=== PATIENT | female | born 1955 | race Caucasian/White ===

== ENCOUNTER → 2016-12-16 | Day surgery (SDC) | payer OTHER ==
[~2016-12-16] VITALS: Ht 154.9 cm; Wt 54.0 kg
[~2016-12-16] MED LIST: AMILORIDE HCL5 M1 PO; CIPRO250 M1 PO
--- NOTE | 2016-12-16 08:21 | Operative Report ---
Operative/Inv Procedure Report Surgery Date: 12/16/16 Name of Procedure: urethral sling, cystoscopy Pre-Operative Diagnosis: stress incontinence Post-Operative Diagnosis: same Estimated Blood Loss: less than 50ml Surgeon/Field Service Supervisor: ISAMAR COLBY MD Anesthesia: local monitored anesthesi Implants: vaginal mesh Complications: none Condition: stable Operative Indication: stress incontinence Operative/Procedure Note Note: This an operative dictation on patient Sigrid Scanlon. She was consented for urethral sling and cystoscopy. The risks benefits and alternatives were given and all questions were answered. Patient was taken to the operating room and placed on the operating table in supine position. Timeout was performed 2 g of IV Kefzol were given and TEVA was administered. She was placed in the dorsolithotomy position and prepped and draped in the standard sterile fashion. Valdovinos catheter was placed and was clamped and placed on the patient's abdomen. Figueroa retractor was placed for vaginal vault visualization. 1% lidocaine was infiltrated into the anterior vaginal wall. Incision was made and the vaginal flaps were created on the patient's left and right side. The Altis Sling kit was opened and the trochars provided were used to place the sling on the patient's left and right side into the obturator fascia. The sling was seen to be in a good tension-free manner once it was tightened with the Prolene loop suture. There was no mesh in the vaginal fornices. The area was copiously irrigated with bacitracin irrigation. The incision was closed with a 3-0 Vicryl running locking suture. Valdovinos catheter was removed and a cystoscopy was performed. Bladder was globally inspected. There were no masses, lesions or abnormalities and the ureteral orifices were in their normal anatomic position. There is no mesh in the bladder or the urethra. The bladder was emptied and the cystoscope was removed. The vaginal vault was then packed with 2 inch vaginal packing impregnated with bacitracin ointment. The sponge and needle count were correct and of the case. Findings: no mesh in bladder, urethra or vaginal fornices. Discharge Disposition: Same Day Admissions
== END ==
LOC: STS 01:38
DX: N39.3 Stress incontinence (female) (male) (principal); M81.0 Age-related osteoporosis without current pathological fracture
CPT/HCPCS: C1771; J0131; J0690; J2250

== ENCOUNTER 2016-12-31 07:31 | Emergency (ER) | payer OTHER ==
[~2016-12-31 07:31] MED LIST changes: -CIPRO250 M1 PO
--- NOTE | 2016-12-31 07:55 | ED GI/GU/ABDOMINAL COMPLAINT ---
History of Present Illness General Chief Complaint: Female Urogenital Problems Stated Complaint: HEMATURIA, 2 WEEKS POST OP FROM BLADDER SURG Source: patient, family, old records Exam Limitations: no limitations Vital Signs & Intake/Output Vital Signs & Intake/Output Vital Signs Date Time Temp Pulse Resp B/P B/P Pulse O2 O2 Flow FiO2 Mean Ox Delivery Rate 12/31 0924 97.2 74 18 160/73 97 Room Air 12/31 0735 97.0 76 22 161/82 98 Allergies Coded Allergies: Sulfa (Sulfonamide Antibiotics) (Severe, HIVES 12/13/16) amoxicillin (Intermediate, RASH 12/13/16) Reconcile Medications Amiloride HCl 5 MG TABLET 1 TAB PO DAILY HYPERCALCIURIA (Reported) Triage Note: PER PT 2 WEEKS POST OP FOR BLADDER SLING, STARTED WITH BLOOD IN URINE THIS AM, MILD DISCOMFORT. Triage Nurses Notes Reviewed? yes ? N Is pt currently ? No HPI: Patient is 2 weeks postop from bladder sling surgery. Patient was seen by Dr. Feng on Monday and everything is doing well. Patient woke up this morning and began having some hematuria. Patient is also having a pressure sensation over her bladder. Patient called Dr. Briceno's who told her to come to the emergency room to rule out a urinary tract infection. Patient denies any fevers or chills. There is no flank pain. Pressure sensation is only over the bladder and there is no aggravating or mitigating factors. There is no radiation of it and she rates as a 3 out of 10. Past History Travel History Traveled to [place] past 21 day No Medical History Any Pertinent Medical History? see below for history Neurological: NONE EENT: NONE Cardiovascular: NONE Respiratory: NONE Gastrointestinal: NONE Hepatic: NONE Renal: NONE Musculoskeletal: NONE Psychiatric: NONE Endocrine: NONE Surgical History Surgical History: BLADDER SLING Psychosocial History What is your primary language Puerto Rican Tobacco Use: Never used ETOH Use: denies use Illicit Drug Use: denies illicit drug use Family History Hx Contributory? No Review of Systems Review of Systems Constitutional: Reports: no symptoms. Respiratory: Reports: no symptoms. Cardiovascular: Reports: no symptoms. GI: Reports: see HPI. Genitourinary: Reports: see HPI, hematuria. Musculoskeletal: Reports: no symptoms. Neurological/Psychological: Reports: no symptoms. Immunologic/Allergic: Reports: no symptoms. Physical Exam Physical Exam General Appearance: well developed/nourished, alert, awake, anxious, mild distress Head: atraumatic Eyes: Bilateral: PERRL, EOMI. Ears, Nose, Throat, Mouth: hearing grossly normal, moist mucous membrane Neck: normal inspection, supple, full range of motion Respiratory: normal breath sounds, chest non-tender, no respiratory distress, lungs clear Cardiovascular: regular rate/rhythm, normal peripheral pulses Gastrointestinal: normal bowel sounds, soft, no organomegaly, tenderness (SLIGHT TENDERNESS RLQ, ), NO REBOUND Extremities: normal range of motion Neurologic/Psych: no motor/sensory deficits, awake, alert, oriented x 3, normal gait, normal mood/affect Core Measures ACS in differential dx? No Severe Sepsis Present: No Septic Shock Present: No Progress Differential Diagnosis: UTI/pyelo Plan of Care: Orders Procedure Date/time Status Add-on Test (ER Only) 12/31 1055 Active COMPREHENSIVE METABOLIC PANEL 12/31 0755 Complete CBC WITHOUT DIFFERENTIAL 12/31 0755 Complete URINALYSIS 12/31 0736 Complete Current Medications Sig/Doreen Start time Last Medication Dose Stop Time Status Admin Ciprofloxacin 250 MG ONCE ONE 12/31 1100 UNVr (Cipro) 12/31 1101 Laboratory Tests 12/31/16 0809: Anion Gap 10, Estimated GFR > 60, BUN/Creatinine Ratio 22.9, Glucose 103 H, Calcium 9.4, Total Bilirubin 0.7, AST 23, ALT 42, Alkaline Phosphatase 82, Total Protein 7.6, Albumin 4.6, Globulin 3.0, Albumin/Globulin Ratio 1.5, CBC w Diff MAN DIFF ORDERED, RBC 5.13, MCV 87.1, MCH 28.8, RDW 13.0, MPV 7.4, Gran % 85.4 H, Lymphocytes % 9.1 L, Monocytes % 4.3, Eosinophils % 1.0, Basophils % 0.2, Absolute Granulocytes 12.0 H, Absolute Lymphocytes 1.3, Absolute Monocytes 0.6, Absolute Eosinophils 0.1, Absolute Basophils 0, Platelet Estimate ADEQUATE, Normocytic RBCs VERIFIED, Normochromic RBCs VERIFIED, PUBS MCHC 33.0 12/31/16 0748: Urine Color BLDY H, Urine Clarity CLDY H, Urine pH 7.5, Ur Specific [place] 1.020, Urine Protein >=300 H, Urine Ketones TRACE H, Urine Nitrite POS H, Urine Bilirubin NEG, Urine Urobilinogen 1.0, Ur Leukocyte Esterase MOD H, Ur Microscopic SEDIMENT EXAMINED, Urine RBC PACKD H, Urine WBC RARE, Urine Hemoglobin LARGE H, Urine Glucose NEG, Urine Comment Diagnostic Imaging: Viewed by Me: CT Scan. Discussed w/RAD: CT Scan. Radiology Impression: PATIENT: DANA SANTOS PRESENT AGE: 61 PATIENT ACCOUNT NO: [id number] : 53 LOCATION: [facility] ORDERING PHYSICIAN: NICO GARCIA MD SERVICE DATE: 12/31/16 EXAM TYPE: CAT - CT ABD & PELVIS W IV CONTRAST EXAMINATION: CT ABDOMEN AND PELVIS WITH CONTRAST CLINICAL INFORMATION: 61-year-old female with right lower quadrant pain. Evaluate appendix. COMPARISON: None TECHNIQUE: Multidetector volumetric imaging was performed of the abdomen and pelvis before and after the IV administration of 95 mL of Optiray 320 intravenous contrast. Sagittal and coronal reformatted images were obtained on the technologist's workstation. DLP: 250 mGy-cm FINDINGS : LUNG BASES: Normal. LIVER, GALLBLADDER, AND BILIARY TREE: Unremarkable. PANCREAS: Unremarkable. SPLEEN: Unremarkable. ADRENAL GLANDS: Unremarkable. KIDNEYS AND URETERS: Kidneys have normal size and enhance symmetrically. No evidence of solid renal mass, nephrolithiasis or hydronephrosis. There are peripelvic cysts of the left kidney. The ureters are normal in caliber. BLADDER: Unremarkable. GASTROINTESTINAL TRACT: Loops of bowel are normal in size. The terminal ileum and appendix are normal. There are few diverticula of the sigmoid colon without diverticulitis. No inflammation within the mesentery. No ascites or pneumoperitoneum. ABDOMINAL WALL: Unremarkable. LYMPH NODES: No pathologic sized lymph nodes within the abdomen or pelvis. The lymph nodes within the mesentery are in the normal size range and measure up to 0.5 cm short axis dimension. VASCULAR: Abdominal aorta is normal in caliber and the celiac trunk, SMA, ELISE and renal arteries are widely patient. There is a circumaortic left renal vein. PELVIC VISCERA: The uterus is surgically absent. No adnexal mass or pelvic free fluid. Surgical clips are present within the right pelvis. OSSEOUS STRUCTURES: There are pars interarticularis defects of L5 with 0.3 cm of grade 1 anterolisthesis of L5 on S1 and mild disc degenerative change of L5-S1. Also, there is mild degenerative disc space narrowing at other levels of the lumbar spine. No suspicious osseous lesions. IMPRESSION: 1. No evidence of appendicitis. 2. No evidence of urolithiasis or urinary tract obstruction. 3. Abdominal wall is intact; no inguinal hernia. 4. L5 spondylolysis with grade 1 anterolisthesis of L5 on S1. DICTATED BY: DISHA HOOD MD DATE/TIME DICTATED: 12/31/161041 GREASE REMOVER:BROOKE DATE/TIME TRANSCRIBED:12/31/161041 CONFIDENTIAL, DO NOT COPY WITHOUT APPROPRIATE AUTHORIZATION. <Electronically signed in Other Vendor System> SIGNED BY: DISHA HOOD MD 12/31/16 1052 Initial ED EKG: none Departure Departure Disposition: HOME OR SELF CARE Condition: Stable Clinical Impression Primary Impression: UTI (urinary tract infection) Qualifiers: Urinary tract infection type: site unspecified Hematuria presence: with hematuria Qualified Codes: N39.0 - Urinary tract infection, site not specified; R31.9 - Hematuria, unspecified Referrals: EARNESTINE WOOD,ISAMAR RAMOS MD,SIOBHAN Pang (PCP/Family) Additional Instructions: FOLLOW UP WITH DR. FENG TAKE CIPRO DIRECTED RETURN IF SYMPTOMS WORSEN OR FOR ANY CONCERNS Departure Forms: Customer Survey General Discharge Information
[2016-12-31 08:26] LABS: ABSOLUTE BASOPHIL COUNT 0 /CUMM (0.0-0.2); ABSOLUTE EOSINOPHIL COUNT 0.1 /CUMM (0.0-0.7); ABSOLUTE LYMPH COUNT 1.3 /CUMM (1.2-3.4); ABSOLUTE MONOCYTE COUNT 0.6 /CUMM (0.10-0.60); BASOPHIL % 0.2 % (0.0-2.0); GRANULOCYTE % 85.4 % (42.2-75.2); HEMATOCRIT 44.6 % (37-47); MEAN CORPUSCULAR HGB 28.8 PG (27.0-31.0); MEAN CORPUSCULAR VOLUME 87.1 FL (81.0-99.0); MEAN PLATELET VOLUME 7.4 FL (7.4-10.4); PLATELET COUNT 220 /CUMM (130-400); RED BLOOD CELL CT 5.13 /CUMM (4.20-5.40)
--- NOTE | 2016-12-31 10:52 | CT SCAN REPORT ---
EXAMINATION: CT ABDOMEN AND PELVIS WITH CONTRAST CLINICAL INFORMATION: 61-year-old female with right lower quadrant pain. Evaluate appendix. COMPARISON: None TECHNIQUE: Multidetector volumetric imaging was performed of the abdomen and pelvis before and after the IV administration of 95 mL of Optiray 320 intravenous contrast. Sagittal and coronal reformatted images were obtained on the technologist's workstation. DLP: 250 mGy-cm FINDINGS: LUNG BASES: Normal. LIVER, GALLBLADDER, AND BILIARY TREE: Unremarkable. PANCREAS: Unremarkable. SPLEEN: Unremarkable. ADRENAL GLANDS: Unremarkable. KIDNEYS AND URETERS: Kidneys have normal size and enhance symmetrically. No evidence of solid renal mass, nephrolithiasis or hydronephrosis. There are peripelvic cysts of the left kidney. The ureters are normal in caliber. BLADDER: Unremarkable. GASTROINTESTINAL TRACT: Loops of bowel are normal in size. The terminal ileum and appendix are normal. There are few diverticula of the sigmoid colon without diverticulitis. No inflammation within the mesentery. No ascites or pneumoperitoneum. ABDOMINAL WALL: Unremarkable. LYMPH NODES: No pathologic sized lymph nodes within the abdomen or pelvis. The lymph nodes within the mesentery are in the normal size range and measure up to 0.5 cm short axis dimension. VASCULAR: Abdominal aorta is normal in caliber and the celiac trunk, SMA, ELISE and renal arteries are widely patient. There is a circumaortic left renal vein. PELVIC VISCERA: The uterus is surgically absent. No adnexal mass or pelvic free fluid. Surgical clips are present within the right pelvis. OSSEOUS STRUCTURES: There are pars interarticularis defects of L5 with 0.3 cm of grade 1 anterolisthesis of L5 on S1 and mild disc degenerative change of L5-S1. Also, there is mild degenerative disc space narrowing at other levels of the lumbar spine. No suspicious osseous lesions. IMPRESSION: 1. No evidence of appendicitis. 2. No evidence of urolithiasis or urinary tract obstruction. 3. Abdominal wall is intact; no inguinal hernia. 4. L5 spondylolysis with grade 1 anterolisthesis of L5 on S1.
[2016-12-31] MEDS ORDERED: CIPRO250 M1 PO (10:58)
[2016-12-31 11:02] VITALS: BP 130/73
== END 2016-12-31 11:05 ==
LOC: ERH 07:31
PROVIDERS: Emergency Medicine
DX: N39.0 Urinary tract infection, site not specified (principal); R39.89 Other symptoms and signs involving the genitourinary system
CPT/HCPCS: 74177; 81001; 87086